=== PATIENT | male | born 1980 | race Caucasian/White ===

== ENCOUNTER 2018-06-29 08:54 | Emergency (ER) | payer OTHER, SELFPAY ==
[2018-06-29 09:10] VITALS: BP 104/83; PULSE 70; RESP 14; TEMP 36.2; O2SAT 96
--- NOTE | 2018-06-29 09:46 | ED_ITS ---
HPI - Extremity Problem General Chief complaint: Extremity Problem,Nontraumatic Stated complaint: Lower back pain Time Seen by Provider: 06/29/18 08:59 Source: patient Mode of arrival: ambulatory Limitations: no limitations History of Present Illness HPI Narrative: The patient is a 37-year-old male who presents with back pain from work. he works as a outboard motor mechanic he was kneeling down to the ground on his way down but he says that his back went out. He has severe pain he feels like his legs are weak more on the left than the right. It hurts every time he moved. He is able to do so. If not yet had to go to the bathroom so no changes in bowel or bladder habits. No numbness or tingling in the saddle area. No previous back injury. MD Complaint: other Related Data Home Medications Medication Instructions Recorded Confirmed Vitamin C 1 tab PO DAILY 06/29/18 06/29/18 multivitamin 1 tab PO DAILY 06/29/18 06/29/18 Previous Rx's Medication Instructions Recorded diazepam [Valium] 5 mg PO BID PRN #10 tab 06/29/18 meloxicam 7.5 mg PO DAILY PRN #20 tab 06/29/18 Allergies Allergy/AdvReac Type Severity Reaction Status Date / Time No Known Drug Allergies Allergy Verified 06/29/18 09:45 Review of Systems Review of Systems ROS Unobtainable: All systems reviewed & are unremarkable except as noted in HPI and below Constitutional Denies chills, Denies fever(s), Denies lethargy and Denies weakness Cardiovascular Denies chest pain, Denies irregular heart rhythm, Denies lightheadedness, Denies palpitations and Denies orthopnea Gastrointestinal Gastrointestinal: Denies abdominal pain, Denies change in bowel habits, Denies diarrhea, Denies nausea and Denies vomiting Musculoskeletal Reports as per HPI and Reports back pain Integumentary/Breasts Denies pruritus, Denies erythema, Denies rash and Denies wounds Neurologic Denies weakness Endocrine Denies palpitations Exam Initial Vital Signs Initial Vital Signs: Vital Signs Temperature 97.2 F L 06/29/18 09:10 Pulse Rate 70 06/29/18 09:10 Respiratory Rate 14 06/29/18 09:10 Blood Pressure 104/83 06/29/18 09:10 Pulse Oximetry 96 06/29/18 09:10 GENERAL: Alert young male appears in pain lying flat on back HEENT: Head atraumatic,EOMI, pupils reactive, ] CARDIOVASCULAR: Regular rate and rhythm without murmurs, rubs or gallops. RESPIRATORY: Breath sounds equal bilaterally, no wheezes rales or rhonchi. ABDOMEN: Soft, nontender. Normoactive bowel sounds all 4 quadrants. No guarding or rebound. BACK: No midline tenderness no real lateral tenderness either no step-off : No CVA tenderness EXTREMITIES: Normal range of motion, no clubbing or edema. Neurovascularly intact NEUROLOGICAL: Alert and oriented x4.Normal gait and speech. Cranial nerves II through XII grossly intact. able to lift both leg straight off the gurney is more than 60? although left leg is more painful than right leg SKIN: Warm, dry, no laceration, no petechiae, no rashes or lesions. Course Orders Ordered: Discontinued Medications Diazepam (Valium) 5 mg PO NOW ONE Stop: 06/29/18 09:42 Last Admin: 06/29/18 10:01 Dose: 5 mg Ketorolac Tromethamine (Toradol) 60 mg IM NOW ONE Stop: 06/29/18 09:42 Last Admin: 06/29/18 10:01 Dose: 60 mg Vital Signs - 8 hr 06/29/18 09:10 06/29/18 10:15 Temperature 97.2 F L Pulse Rate 70 77 Respiratory Rate 14 13 Blood Pressure 104/83 Blood Pressure [Left Arm] 146/76 H Pulse Oximetry 96 MDM - Extremity (Nontraumatic) MDM Narrative Medical decision making narrative: Patient overall feeling a little bit better after Toradol. We discussed light stretching. If still having pain may require an MRI as an outpatient. His L&I form is filled out Discharge Plan Departure Patient Disposition: Home Clinical Impression: Back pain Qualifiers: Back pain location: low back pain Chronicity: acute Back pain laterality: midline Sciatica presence: without sciatica Qualified Code(s): M54.5 - Low back pain Discharge Date/Time: 06/29/18 11:18 Interventions: ED Discharge Assessment Last Done: 06/29/18 11:16 Instructions: Low Back Pain Activity Restrictions/Additional Instructions: *You have been diagnosed with low back *What to do: Light stretching, increase activity as tolerated no heavy lifting no sitting for long periods time *Continue to take medications as directed Meloxicam 7.5 mg once daily--don't combine with other NSAIDS, such as ibuprofen, Aleve, naproxen, Advil, etc valium 5 mg every 12 hours only needed muscle spasm--do not drive or operate heavy machinery while taking Valium this can cause drowsiness, and decreased decision making skills Tylenol 650 mg every 4-6 hours if needed for mild pain *Follow up with your primary care provider in 2-3 days *Return to ER if you should have numbness, tingling, worsening back pain, leg weakness or any new, worsening or concerning symptoms Prescriptions: New meloxicam 7.5 mg tablet 7.5 mg PO DAILY PRN (Reason: pain, moderate) Qty: 20 RF: 0 diazepam [Valium] 5 mg tablet 5 mg PO BID PRN (Reason: muscle spasm) Qty: 10 RF: 0 No Action Vitamin C 1 tab PO DAILY RF: 0 multivitamin 1 tab PO DAILY RF: 0 Referrals: Ashwin London MD [Non-Staff] - Stand Alone Forms: Work Release Note
[2018-06-29] MEDS: KETOROLAC 60 MG/2 ML VIAL IM (10:01)
[2018-06-29] MEDS: diazePAM 5 MG TABLET PO (10:01)
[2018-06-29 10:15] VITALS: BP 146/76; PULSE 77; RESP 13
== END 2018-06-29 11:18 | disposition home or self-care (01) ==
PROVIDERS: Emergency Provider Emergency Medicine
DX: M54.5 Low back pain (principal); R53.1 Weakness; Y99.0 Civilian activity done for income or pay
CPT/HCPCS: 96372; 99282; 99283; J1885

== ENCOUNTER → 2018-10-05 12:45 | Outpatient (CLI) | payer OTHER, SELFPAY ==
--- NOTE | 2018-10-05 | DI.MRI.S_ITS ---
PROCEDURE: MR KNEE RT WO CON INDICATIONS: INTERNAL DERANGEMENT OF RIGHT KNEE TECHNIQUE: Noncontrast sagittal PD fast spin echo and T2 fast spin echo with fat saturation, sagittal 3-D FLASH with fat saturation; coronal T1 spin echo and PD fast spin echo with fat saturation, and axial PD fast spin echo with fat saturation through the knee. COMPARISON: None. FINDINGS: Image quality: Excellent. Menisci: The body of the lateral meniscus is truncated, likely secondary to prior meniscectomy. There is a small radial tear in the posterior horn of the lateral meniscus. Degenerative tear is seen in the anterior horn of the lateral meniscus extending to the inferior articular surface. There is intrasubstance degeneration in the posterior horn of the medial meniscus. The meniscal root ligaments appear intact. Cruciate ligaments: The anterior and posterior cruciate ligaments appear intact. Medial structures: The medial collateral ligament appears intact. The posterior oblique ligament, semimembranosus tendon insertions, oblique popliteal ligament, and meniscocapsular junction appear intact. Visualized portions of the pes anserinus tendons appear normal. No abnormal bursal fluid. Lateral structures: The lateral collateral ligament, long and short heads of the biceps femoris tendon appear intact. The popliteus tendon appears normal; the popliteofibular ligament appears intact. The posterosuperior and anteroinferior popliteomeniscal fascicles appear intact. The arcuate and fabellofibular ligaments appear intact, on either side of the lateral inferior geniculate artery. Iliotibial band appears normal. Anterior structures: The quadriceps and patellar tendons appear intact. Patellar alignment is normal. No femoral trochlear dysplasia or ventral trochlear prominence. No edema in the infrapatellar fat pad. Bones and cartilage: No bone marrow contusions or fractures. There is [id number] tricompartmental cartilage thinning and significant degeneration. Joint space: There is small knee joint effusion. There is a tiny Palma's cyst. Normal appearing synovial plicae are incidentally noted. IMPRESSION: 1. The body of the lateral meniscus appears truncated, consistent with meniscectomy. There is tear involving both anterior and posterior horns of the lateral meniscus. 2. Intrasubstance degeneration of the posterior horn of the medial meniscus. 3. [id number] tricompartmental cartilage thinning and fibrillation. 4. Small knee joint effusion. 5. A tiny Palma's cyst. Dictated by: Melany Lopez M.D. on 10/05/2018 at 14:44 Approved by: Melany Lopez M.D. on 10/05/2018 at 16:22
== END ==
PROVIDERS: PCP Family Medicine; Visit Provider Family Medicine
DX: M23.321 Other meniscus derangements, posterior horn of medial meniscus, right knee (principal); M25.461 Effusion, right knee; M71.21 Synovial cyst of popliteal space [Baker], right knee; M22.3X1 Other derangements of patella, right knee
CPT/HCPCS: 73721

== ENCOUNTER → 2021-02-07 07:30 | Outpatient (CLI) | payer OTHER, SELFPAY ==
--- NOTE | 2021-02-07 07:32 | DI.US.S_ITS ---
PROCEDURE: US ABDOMEN COMPLETE INDICATIONS: RIGHT UPPER QUADRANT PAIN TECHNIQUE: Real-time scanning was performed of the abdominal and retroperitoneal organs, with image documentation. COMPARISON: None. FINDINGS: Liver: Liver is normal in size and homogeneous in echotexture. Gallbladder: No findings of gallstones or sludge are seen. The gallbladder wall is not thickened, measuring 3 mm or less. No specific pericholecystic fluid is seen. The sonographic Oh sign is negative. Biliary ducts: Intrahepatic bile ducts are non-dilated. Extrahepatic bile duct caliber measures 6 mm. Normal is 6-7 mm or less in diameter, or 10 mm or less post-cholecystectomy. Pancreas: Not seen, obscured by overlying bowel gas. Spleen: Spleen is normal in size and homogeneous in echotexture. Kidneys: Kidneys are normal in size and echotexture. Right kidney measures 14.8 cm long; left kidney measures 14 cm long. No hydronephrosis or nephrolithiasis. No solid masses. On the left, there is a simple appearing peripelvic cyst that measures up to 17 mm. Aorta: Visualized aorta is normal in caliber at less than 3 cm. Iliacs: Proximal common iliac arteries are normal in caliber at less than 2.5 cm. IVC: Intrahepatic inferior vena cava is patent. Miscellaneous: No free abdominal fluid. IMPRESSION: The gallbladder demonstrates a normal sonographic appearance. No biliary dilatation is seen. 17 mm left peripelvic cyst noted. Pancreas not seen. Dictated by: Buzz Murillo M.D. on 02/07/2021 at 9:17 Approved by: Buzz Murillo M.D. on 02/07/2021 at 9:19
== END ==
PROVIDERS: PCP Family Medicine; Referring Provider Physician Assistant; Visit Provider Physician Assistant
DX: R10.11 Right upper quadrant pain (principal); N28.1 Cyst of kidney, acquired
CPT/HCPCS: 76700

== ENCOUNTER → 2021-02-20 07:48 | Outpatient (CLI) | payer OTHER, SELFPAY ==
--- NOTE | 2021-02-20 | DI.RAD.S_ITS ---
PROCEDURE: XR THORACIC SPINE 3V INDICATIONS: SUDDEN ONSET RIGHT POSTERIOR CHEST PAIN TECHNIQUE: 3 views of the thoracic spine were acquired. COMPARISON: , CR, XR RIBS RT MIN 3V W CXR 1V, 02/20/2021, 8:58. FINDINGS: Bones: No compression fracture. Question minimal irregularity at the right posterior 10th rib. Small vertebral body osteophytes. No suspicious bony lesions. 12 pairs of ribs are noted, and appear intact where visualized. Soft tissues: No paravertebral stripe thickening. IMPRESSION: Question nondisplaced fracture of the right posterior 10th rib. Mild degenerative changes in the thoracic spine. Correlate for point tenderness. Dictated by: Tony Brown M.D. on 02/20/2021 at 9:28 Approved by: Tony Brown M.D. on 02/20/2021 at 9:32
--- NOTE | 2021-02-20 | DI.RAD.S_ITS ---
PROCEDURE: XR RIBS RT MIN 3V W CXR 1V INDICATIONS: PAIN IN THORACIC SPINE TECHNIQUE: 2 views of the right ribs were acquired, along with a single view chest. COMPARISON: None. FINDINGS: Surgical changes and devices: None. Bones and chest wall: No displaced fractures. No dislocations. No suspicious bony lesions. Overlying soft tissues appear unremarkable. Lungs and pleura: No pleural effusions or pneumothorax. Bibasilar hazy opacity.. Mediastinum: Mediastinal contours appear normal. Heart size is normal. IMPRESSION: No displaced right-sided rib fracture is identified. Suspect bibasilar atelectasis. If high suspicion for occult rib fracture CT of the chest could be performed for further evaluation. Dictated by: Tony Brown M.D. on 02/20/2021 at 9:33 Approved by: Tony Brown M.D. on 02/20/2021 at 9:36
== END ==
PROVIDERS: PCP Family Medicine; Referring Provider Physician Assistant; Visit Provider Physician Assistant
DX: M47.814 Spondylosis without myelopathy or radiculopathy, thoracic region (principal); M54.6 Pain in thoracic spine
CPT/HCPCS: 71101; 72072

== ENCOUNTER 2021-04-03 08:33 | Emergency (ER) | payer OTHER, SELFPAY ==
[2021-04-03 08:36] VITALS: BP 170/94; PULSE 87; RESP 17; TEMP 35.8; O2SAT 98; BMI 33.6
--- NOTE | 2021-04-03 08:46 | DI.RAD.S_ITS ---
PROCEDURE: XR FINGER RT MIN 2V INDICATIONS: R thumb injury and swelling TECHNIQUE: AP hand, 2 views of the right thumb acquired.. COMPARISON: None. FINDINGS: Bones: No fractures or dislocations. No suspicious bony lesions. Old avulsion at the IP joint. Well corticated fragment. 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 Old ulnar styloid avulsion. Soft tissues: No suspicious soft tissue calcifications. IMPRESSION: Old injury, degenerative arthritis. No evidence acute bony abnormality of the right thumb. Dictated by: Luis Alberto Burton M.D. on 04/03/2021 at 9:43 Approved by: Luis Alberto Burton M.D. on 04/03/2021 at 9:44
--- NOTE | 2021-04-03 08:47 | ED_ITS ---
HPI - General Adult General Chief complaint: Extremity Injury, Upper Stated complaint: Possible broken Rt thumb Time Seen by Provider: 04/03/21 08:36 Source: patient Mode of arrival: Ambulatory History of Present Illness HPI narrative: Patient is a 40-year-old male who is here for evaluation of right thumb pain and swelling. He states that has been worsening over the past several days/week. He does not remember a specific incident that caused the discomfort. Is got to the point where it is throbbing and keeping him up at night. Pain is located at the tip of the right thumb. Related Data Home Medications Medication Instructions Recorded Confirmed Vitamin C 1 tab PO DAILY 06/29/18 06/29/18 multivitamin 1 tab PO DAILY 06/29/18 06/29/18 Previous Rx's Medication Instructions Recorded diazepam 5 mg tablet (Valium) 5 mg PO BID PRN #10 tab 06/29/18 meloxicam 7.5 mg tablet 7.5 mg PO DAILY PRN #20 tab 06/29/18 hydrocodone 5 mg-acetaminophen 325 1 tab PO Q6H PRN #7 tab 04/03/21 mg tablet sulfamethoxazole 800 1 tab PO BID 5 Days #10 tab 04/03/21 mg-trimethoprim 160 mg tablet (Bactrim DS) Allergies Allergy/AdvReac Type Severity Reaction Status Date / Time No Known Drug Allergies Allergy Verified 06/29/18 09:45 Review of Systems Constitutional Constitutional: Denies fever(s) Musculoskeletal Musculoskeletal: Reports system reviewed and no additional complaints, except as documented and Reports as per HPI Integumentary/Breasts Skin/Breast: Reports system reviewed and no additional complaints, except as documented and Reports as per HPI Neurologic Neurologic: Reports system reviewed and no additional complaints, except as documented and Reports as per HPI Hematologic/Lymphatic On Anticoagulants: No Patient History Medical History (Updated 04/03/21 @ 10:00 by David Benites DO) Healthy adult Social History lives independently: Yes Smoking Status: Former smoker Exam Initial Vital Signs Initial Vital Signs: Vital Signs Temperature 96.5 F L 04/03/21 08:36 Pulse Rate 87 04/03/21 08:36 Respiratory Rate 17 04/03/21 08:36 Blood Pressure 170/94 H 04/03/21 08:36 Pulse Oximetry 98 04/03/21 08:36 Cardio Pulses: radial pulses present on the right Skin Other: Patient with discoloration from the IP joint distal of the right thumb. Neuro Sensory Exam: no sensory deficits noted Extrem Other: Does have a subungual hematoma of the right thumb The pad of the right thumb thumb is tender but is soft. Has swelling from the IP joint and distal. Course Orders Ordered: ED Orders 04/03/21 08:46 XR finger RT min 2V Stat Vital Signs Vital signs: Vital Signs - 8 hr 04/03/21 08:36 04/03/21 09:30 Temperature 96.5 F L Pulse Rate 87 82 Respiratory Rate 17 17 Blood Pressure 170/94 H 161/100 H Pulse Oximetry 98 97 Medical Decision Making Imaging Data Extremity x-ray #1: Radiologist's Impression: [address] [address] XRay Report Signed Patient: Arya Marcano MR#: [id number] : 1980 Acct:[id number] Age/Sex: 40 / M Date of Service: 04/03/21 Loc: ED Accession Number: [id number] ?? Procedure: XR finger RT min 2V Ordering Provider: David Benites D.O. PROCEDURE:? XR FINGER RT MIN 2V ? INDICATIONS:? R thumb injury and swelling ? TECHNIQUE:? AP hand, 2 views of the right thumb acquired..? ? COMPARISON:? None. ? FINDINGS:? ? Bones:? No fractures or dislocations.? No suspicious bony lesions.? Old avulsion at the IP joint.? Well corticated fragment.? Degenerative arthritis at the MCP joint.? Old ulnar styloid avulsion. ? Soft tissues:? No suspicious soft tissue calcifications.? ? IMPRESSION:? Old injury, degenerative arthritis.? No evidence acute bony abnormality of the right thumb.? ? Dictated by: Luis Alberto Burton M.D. on 04/03/2021 at 9:43 ? ? Approved by: Luis Alberto Burton M.D. on 04/03/2021 at 9:44? [facility] Narrative Medical decision making narrative: Patient is neurovascularly intact. No fractures noted on the x-rays. When I initially thought was a subungual hematoma was actually purulent material under the fingernail. Other findings consistent with a paronychia. Attempted to drain the. Neck you with this was unsuccessful. I did do a nail trephination with return of purulent material. Did consider a Felon but the pad of the finger is soft and I feel this is unlikely given his presentation. Plan we is to place him on antibiotics. Was also given pain medication for his comfort. He was given return precautions. He expressed understanding and agreement. Discharge Plan Departure Patient Disposition: Home Clinical Impression: Finger infection Activity Restrictions/Additional Instructions: I do recommend that you wash her hands like normal use soap and water like normal. He prescription for pain medication and antibiotics was transmitted to [facility] in [place]. Please take it as directed. Return to the emergency department for any new or worsening symptoms. Prescriptions: New sulfamethoxazole-trimethoprim [Bactrim DS] 800-160 mg tablet 1 tab PO BID 5 Days Qty: 10 0RF hydrocodone-acetaminophen 5-325 mg tablet 1 tab PO Q6H PRN (Reason: pain) Qty: 7 0RF No Action Vitamin C 1 tab PO DAILY 0RF multivitamin 1 tab PO DAILY 0RF meloxicam 7.5 mg tablet 7.5 mg PO DAILY PRN (Reason: pain, moderate) Qty: 20 0RF diazepam [Valium] 5 mg tablet 5 mg PO BID PRN (Reason: muscle spasm) Qty: 10 0RF Referrals: Ashwin London MD [Primary Care Provider] -
[2021-04-03 09:30] VITALS: BP 161/100; PULSE 82; RESP 17; O2SAT 97
[2021-04-03 10:11] VITALS: BP 180/99; PULSE 81; RESP 18; O2SAT 96
== END 2021-04-03 10:12 | disposition home or self-care (01) ==
PROVIDERS: Emergency Provider Emergency Medicine; PCP Family Medicine
DX: L08.9 Local infection of the skin and subcutaneous tissue, unspecified (principal)
CPT/HCPCS: 73140; 99283

== ENCOUNTER → 2022-07-03 08:11 | Outpatient (CLI) | payer OTHER, SELFPAY ==
[2022-07-03 09:48] LABS: Add Manual Diff / Slide Review NO; Basophils Absolute Auto 100 /uL (0-100); Basophils Percent Auto 1.1 % (0-2); Eosinophils Absolute Auto 100 /uL (0-450); Eosinophils Percent Auto 2.6 % (2-4); Hematocrit 42.7 % (41-53); Hemoglobin 14.5 g/dL (13.5-17.5); Lymphocytes Absolute Auto 1800 /uL (1100-4500); Lymphocytes Percent Auto 37.3 % (25-40); Mean Corpuscular HGB Conc 34.1 % (30-36); Mean Corpuscular Hemoglobin 30.2 PG (26-34); Mean Corpuscular Volume 88.7 fL (80-100); Monocytes Absolute Auto 400 /uL (0-900); Monocytes Percent Auto 7.3 % (3-14); Neutrophils Absolute Auto 2600 /uL (1500-7000); Neutrophils Percent Auto 51.7 % (50-75); Platelet Count 350 X10^3/uL (150-400); Red Blood Cell Count 4.81 X10^6/uL (4.5-5.9); Red Cell Distribution Width 13.5 % (11.6-14.8); White Blood Cell Count 4.9 X10^3/uL (4.5-11.0)
[2022-07-03 10:10] LABS: Alanine Aminotransferase 23 IU/L (<50); Albumin 3.9 g/dL (3.5-5.0); Albumin Globulin Ratio 1.5 (1.0-2.8); Alkaline Phosphatase 51 U/L (38-126); Aspartate Aminotransferase 21 IU/L (17-59); BUN Creatinine Ratio 25.8 (6-22); Bilirubin Total 0.4 mg/dL (0.2-1.3); Blood Urea Nitrogen 17 mg/dL (9-20); Calcium 8.9 mg/dL (8.4-10.2); Carbon Dioxide 30 mmol/L (22-32); Chloride 105 mmol/L (98-107); Cholesterol 180 mg/dL (140-199); Estimated Glomerular Filt Rate > 60 mL/min (>60); Globulin 2.6 g/dL (1.7-4.1); Glucose 113 mg/dL (70-100); HDL Cholesterol 50 mg/dL (40-60); HEMOLYSIS < 15 (0-50); LDL Cholesterol Calculated 121 mg/dL (<100); Potassium 4.9 mmol/L (3.4-5.1); Sodium 140 mmol/L (137-145); Total Protein 6.5 g/dL (6.3-8.2); Triglycerides 46 mg/dL (35-150)
== END ==
PROVIDERS: PCP Physician Assistant; Referring Provider Physician Assistant; Visit Provider Physician Assistant
DX: Z00.00 Encounter for general adult medical examination without abnormal findings (principal); Z13.1 Encounter for screening for diabetes mellitus; Z13.220 Encounter for screening for lipoid disorders
CPT/HCPCS: 36415; 80053; 80061; 85025

== ENCOUNTER → 2023-03-20 11:42 | Outpatient (CLI) | payer OTHER, SELFPAY ==
--- NOTE | 2023-03-20 | DI.CT.S_ITS ---
PROCEDURE: CT HEAD/BRAIN WO CON INDICATIONS: Paresthesia of skin left side TECHNIQUE: Noncontrast 4.5 mm thick angled axial sections acquired from the foramen magnum to the vertex, with coronal and sagittal reformats. For radiation dose reduction, the following was used: automated exposure control, adjustment of mA and/or kV according to patient size. COMPARISON: None. FINDINGS: Image quality: Diagnostic. CSF spaces: Basal cisterns are patent. No extra-axial fluid collections. Ventricles are normal in size and shape. Brain: No midline shift. No intracranial masses or hemorrhage. Martines-white matter interface is normal. Skull and face: Calvarium and visualized facial bones are intact, without suspicious lesions. Right parietal scalp subcutaneous nodule, likely epidermal inclusion cyst. Sinuses: Mild paranasal sinus mucosal thickening. The mastoids are clear. IMPRESSION: No acute intracranial pathology. Dictated by: Leobardo Ferrari M.D. on 03/20/2023 at 12:52 Approved by: Leobardo Ferrari M.D. on 03/20/2023 at 12:54
== END ==
LOC: CT 11:43
PROVIDERS: PCP Registered Nurse; Referring Provider Registered Nurse; Visit Provider Registered Nurse
DX: R20.2 Paresthesia of skin (principal); R22.0 Localized swelling, mass and lump, head
CPT/HCPCS: 70450

== ENCOUNTER → 2025-01-17 08:04 | Outpatient (CLI) | payer OTHER, SELFPAY ==
--- NOTE | 2025-01-17 08:06 | DI.CT.S_ITS ---
PROCEDURE: CT HEAD/BRAIN WO CON
--- NOTE | 2025-01-17 08:06 | DI.CT.S_ITS ---
PROCEDURE: CT CERVICAL SPINE WO CON
--- NOTE | 2025-01-17 08:06 | DI.CT.S_ITS ---
PROCEDURE: CT INTERNAL AUDITORY CANALS BI
== END ==
LOC: CT 08:05
PROVIDERS: PCP Nurse Practitioner Family; Referring Provider Nurse Practitioner Family; Visit Provider Nurse Practitioner Family
DX: S02.19XA Other fracture of base of skull, initial encounter for closed fracture (principal); M48.02 Spinal stenosis, cervical region; X58.XXXA Exposure to other specified factors, initial encounter
CPT/HCPCS: 70450; 70480; 72125